=== PATIENT | male | born 1950 | race Asian ===

== ENCOUNTER 2019-02-03 09:46 | Inpatient (IN) | payer OTHER ==
[~2019-02-03] VITALS: Ht 162.6 cm; Wt 80.4 kg
[2019-02-03] VITALS (26 sets, daily range): BP systolic 83–104; BP diastolic 49–64; PULSE 56–70; RESP 14–42; Ht 162.6 cm; Wt 80.4 kg
[~2019-02-03 09:46] MED LIST: ASPI-817 PO; ATOR-2 PO; CLOP75TA28 PO; LISI10TA2 PO; METF-849 PO; SIMV40TA2 PO
[2019-02-03] MEDS ORDERED: VERAPAMIL 5 MG INJ ONE (10:02)
[2019-02-03] MEDS ORDERED: LIDOCAINE 1% (MDV) 20 ML INJ ONE (10:02)
[2019-02-03] MEDS ORDERED: MIDAZOLAM 1 MG/ML 2 ML INJ ONE (10:02)
[2019-02-03] MEDS ORDERED: IODIXANOL LOCM 100 ML BTL ONE (10:02)
[2019-02-03] MEDS ORDERED: HEPARIN 1000 UNITS/ML 10 ML INJ ONE (10:02)
[2019-02-03] MEDS ORDERED: FENTAnyl 50 MCG/ML VIAL ONE (10:02)
[2019-02-03] MEDS ORDERED: SOD CHLORIDE 0.9% 500 ML ONE (10:07)
[2019-02-03] MEDS ORDERED: NITROGLYCERIN (IC) 100 MCG/ML INJ ONE (10:07)
[2019-02-03] MEDS ORDERED: ACETAMINOPHEN 325 MG TAB PO PRN ×2 (10:30→11:30)
[2019-02-03] MEDS ORDERED: ONDANSETRON 4 MG INJ IV PRN ×2 (10:30→11:30)
[2019-02-03] MEDS ORDERED: niCARdipine 25 MG INJ ONE (10:50)
[2019-02-03] MEDS ORDERED: BIVALIRUDIN 250MG /NS 50 ML 50 ML IVPB SCH (11:04)
[2019-02-03] MEDS ORDERED: SOD CHLORIDE 0.9% 1,000 ML IV SCH (11:04)
[2019-02-03] MEDS ORDERED: TICAGRELOR 90 MG TABLET ONE (11:07)
[2019-02-03] MEDS ORDERED: IOHEXOL 350MG/ML 50 ML BTL ONE (11:18)
[2019-02-03] MEDS ORDERED: EPTIFIBATIDE 100 ML IV ONE (11:18)
[2019-02-03] MEDS ORDERED: BIVALIRUDIN 250MG /NS 50 ML 50 ML IVPB ONE (11:18)
[2019-02-03] MEDS ORDERED: morphine 2 MG INJ IV PRN (11:30)
[2019-02-03] MEDS ORDERED: OXYCODONE/ACETAMINOPHEN (5/325) TAB PO PRN (11:30)
[2019-02-03] MEDS ORDERED: AL HYDROX/MG HYDROX/SIMETH 30 ML CUP PO PRN (11:30)
[2019-02-03] MEDS ORDERED: OXYCODONE/ACETAMINOPHEN (5/325) TAB ONE (12:55)
[2019-02-03] MEDS ORDERED: GLUCAGON 1 MG INJ IM PRN (19:00)
[2019-02-03] MEDS ORDERED: GLUCOSE GEL 15 GRAM TUBE BUCCAL PRN (19:00)
[2019-02-03] MEDS ORDERED: GLUCOSE GEL 15 GRAM TUBE PO PRN ×2 (19:00)
[2019-02-03] MEDS ORDERED: DEXTROSE 50% 50 ML SYRINGE IV PRN ×2 (19:00)
[2019-02-03] MEDS: INSULIN ASPART [NOVOLOG] 3 ML PEN SC SCH ×2 (19:23→21:00)
[2019-02-03] MEDS: ATORVASTATIN 80 MG TAB PO SCH (21:00)
[2019-02-03] MEDS: TICAGRELOR 90 MG TABLET PO SCH (21:01)
[2019-02-04] VITALS (19 sets, daily range): BP systolic 98–145; BP diastolic 52–86; PULSE 65–87; RESP 16–31
[2019-02-04] MEDS ORDERED: ACCU-CHEK XX SCH (02:00)
[2019-02-04] MEDS: INSULIN ASPART [NOVOLOG] 3 ML PEN SC SCH ×4 (08:19→20:24)
[2019-02-04] MEDS: TICAGRELOR 90 MG TABLET PO SCH ×2 (08:19→20:22)
[2019-02-04] MEDS ORDERED: ASPIRIN (EC) 81 MG TAB PO SCH (09:00)
[2019-02-04] MEDS: ATORVASTATIN 80 MG TAB PO SCH (20:22)
[2019-02-05] MEDS ORDERED: CLOPIDOGREL 75 MG TAB PO ONE (09:00)
[2019-02-06] MEDS ORDERED: CLOPIDOGREL 75 MG TAB PO SCH (09:00)
== END 2019-02-04 20:45 | disposition short-term general hospital (02) | DRG 247 ==
LOC: E/R 09:46 → GIL 10:13 → CCL 10:13 → REC 10:23 → CCL 10:23 → ICU 18:35
PROVIDERS: ADMIT Internal Medicine; ATTEND Internal Medicine
PROC: B211YZZ Fluoroscopy of Multiple Coronary Arteries using Other Contrast (ICD-10-PCS; 2019-02-03)
PROC: 027034Z Dilation of Coronary Artery, One Artery with Drug-eluting Intraluminal Device, Percutaneous Approach (ICD-10-PCS; principal; 2019-02-03 10:30)
PROC: 4A023N7 Measurement of Cardiac Sampling and Pressure, Left Heart, Percutaneous Approach (ICD-10-PCS; 2019-02-03 10:30)
DX: I21.11 ST elevation (STEMI) myocardial infarction involving right coronary artery (principal); I25.10 Atherosclerotic heart disease of native coronary artery without angina pectoris; I10 Essential (primary) hypertension; E11.8 Type 2 diabetes mellitus with unspecified complications; E78.5 Hyperlipidemia, unspecified
CPT/HCPCS: 36415; 71045; 80048; 80061; 82550; 82553; 82962; 83036; 84484; 85025; 85610; 85730; 87081; 92941; 93005; 93306; 93454; C1725; C1874; C1887; J0583; J1327; J1644; J1815; J2250; J3010; J7040; Q9967